=== PATIENT | male | born 1990 | race Caucasian/White ===

== ENCOUNTER 2020-12-27 22:10 | Emergency (ER) | payer OTHER ==
[~2020-12-27] VITALS: Ht 180.3 cm; Wt 99.8 kg
[2020-12-27] MEDS ORDERED: AMOXICILLIN500 MG PO ×2 (22:23)
[2020-12-28] MEDS ORDERED: PROTONIX40 MG PO (02:52)
--- NOTE | 2020-12-28 16:54 | EKG ---
[facility] [address] [place] [id number] Signed Normal sinus rhythm Nonspecific T wave abnormality Abnormal ECG When compared with ECG of 27-DEC-2020 22:13, (Unconfirmed) No significant change was found Confirmed by OSCAR BAKER MD ([id number] on 12/28/2020 4:54:26 PM Electronically Signed By: OSCAR BAKER MD 12/28/20 1654 PATIENT NAME: RAFIA BALL Electrocardiogram DATE OF : 86 PHYSICIAN: OSCAR BAKER MD REPORT #: [id number] REPORT IS CONFIDENTIAL AND NOT TO BE RELEASED WITHOUT AUTHORIZATION
== END 2020-12-28 03:26 | disposition home or self-care (01) ==
LOC: ED 22:10
DX: R07.89 Other chest pain (principal); F17.200 Nicotine dependence, unspecified, uncomplicated
CPT/HCPCS: 71045; 80053; 83735; 84484; 85025; 93005; 93010; 96374; 99285-25; J2405